=== PATIENT | male | born 1965 | race Caucasian/White ===

== ENCOUNTER 2018-03-05 14:33 | Emergency (ER) | payer OTHER ==
[2018-03-05 14:42] VITALS: BP 107/75; PULSE 62; RESP 18; TEMP 97.6
--- NOTE | 2018-03-05 15:25 | ED ---
General Adult HPI - General Chief complaint: Recheck/Abnormal Lab/Rx Stated complaint: clogged feeding tube Source: patient Mode of arrival: ambulatory Limitations: no limitations - History of Present Illness Initial comments: 52-year-old male presents with his feeding tube getting backed up. Patient states he is unable to flush is unable to get any nutrition and. Patient states this is ongoing for the last 3 days. Patient states his home nurses try to flush with both saline and Coca-Cola and it's not helping. Patient states a week ago he went and saw his specialty team at [facility] and they had to use a special adapter to flush it out. Immediately. Patient states this all occurred after having an emergency gallbladder surgery when she was septic. Patient states he is able to tolerate oral intake however he fills up very quickly and is unable to eat a lot at one time. Patient losing weight tremendously/ patient has lost 50 pounds over the last year. Patient states 20 in the last 2 months. No recent illness or fever. Patient did have a bowel movement today. Patient also orally took an ensure and a bowl of cereal without difficulty this am. -: days(s) (3) Treatments Prior to Arrival: other (flushing with saline and coke) - Related Data Allergies Allergy/AdvReac Type Severity Reaction Status Date / Time codeine Allergy Unknown Verified 03/05/18 14:36 Review of Systems ROS Statement: Those systems with pertinent positive or pertinent negative responses have been documented in the HPI. ROS Other: All systems not noted in ROS Statement are negative. Constitutional: Reports: other (weight loss). Denies: fever ENT: Denies: throat pain Gastrointestinal: Denies: abdominal pain, nausea, vomiting Past Medical History Past Medical History: Diabetes Mellitus Additional Past Medical History / Comment(s): kidney transplant. emergent cholecystectomy, sepsis History of Any Multi-Drug Resistant Organisms: None Reported Past Surgical History: Cholecystectomy Additional Past Surgical History / Comment(s): feeding tube (secondary to gallblader removal.) Past Psychological History: No Psychological Hx Reported Smoking Status: Never smoker Past Alcohol Use History: None Reported Past Drug Use History: None Reported General Exam Limitations: no limitations General appearance: alert, in no apparent distress Head exam: Present: atraumatic, normocephalic, normal inspection Eye exam: Present: normal appearance, PERRL, EOMI. Absent: scleral icterus, conjunctival injection, periorbital swelling ENT exam: Present: normal exam, mucous membranes moist Neck exam: Present: normal inspection. Absent: tenderness, meningismus, lymphadenopathy Respiratory exam: Present: normal lung sounds bilaterally. Absent: respiratory distress, wheezes, rales, rhonchi, stridor Cardiovascular Exam: Present: regular rate, normal rhythm, normal heart sounds. Absent: systolic murmur, diastolic murmur, rubs, gallop, clicks GI/Abdominal exam: Present: soft, normal bowel sounds. Absent: distended, tenderness, guarding, rebound, rigid Neurological exam: Present: alert, oriented X3, CN II-XII intact Psychiatric exam: Present: normal affect, normal mood Skin exam: Present: warm, dry, intact, normal color. Absent: rash Course Vital Signs 03/05/18 14:37 Temperature 97.6 F Pulse Rate 62 Respiratory 18 Rate Blood Pressure 107/75 O2 Sat by Pulse 95 Oximetry Medical Decision Making - Medical Decision Making discussed with Dr. Escobedo, and evaluated by him. We discussed following up closely GI specialist or going back to [facility] if we are unable to flush we will attempt flushing with some normal saline. Also discussed removing and changing out the feeding tube however we discussed in the better option to have it done with his surgical team at [facility]. unable to flush with normal saline, completely blocked Disposition Clinical Impression: Feeding tube blocked Disposition: HOME SELF-CARE Condition: Fair Additional Instructions: Patient to go to [facility] for consult to get his feeding tube flushed or follow- up with GI in the next 1-2 days. Is patient prescribed a controlled substance at d/c from ED?: No Referrals: Nonstaff,Physician [Primary Care Provider] - 1-2 days Della Chavarria MD [STAFF PHYSICIAN] - 1-2 days Time of Disposition: 15:27
== END 2018-03-05 15:43 | disposition home or self-care (01) ==
LOC: EC 14:33
DX: K94.23 Gastrostomy malfunction (principal); Z94.0 Kidney transplant status; Z88.5 Allergy status to narcotic agent
CPT/HCPCS: 99282